=== PATIENT | female | born 1985 | race Caucasian/White ===

== ENCOUNTER 2017-05-01 15:45 | Emergency (ER) | payer MEDICAID ==
[~2017-05-01] VITALS: Ht 162.6 cm; Wt 89.3 kg
[2017-05-01 18:42] VITALS: BP 106/70
== END 2017-05-01 18:40 | disposition home or self-care (01) ==
LOC: ED 15:45
DX: M54.41 Lumbago with sciatica, right side (principal); Z90.49 Acquired absence of other specified parts of digestive tract

== ENCOUNTER 2017-06-06 08:59 | Emergency (ER) | payer MEDICAID ==
[2017-06-06 10:41] VITALS: BP 131/81
== END 2017-06-06 10:41 | disposition home or self-care (01) ==
LOC: ED 08:59
DX: M54.31 Sciatica, right side (principal); R03.0 Elevated blood-pressure reading, without diagnosis of hypertension; Z98.51 Tubal ligation status
CPT/HCPCS: J1885

== ENCOUNTER 2017-06-14 18:36 | Emergency (ER) | payer SELFPAY ==
[~2017-06-14] VITALS: Ht 162.6 cm; Wt 88.5 kg
[2017-06-14 20:30] VITALS: BP 120/80
== END 2017-06-14 20:30 | disposition home or self-care (01) ==
LOC: ED 18:36
DX: M54.41 Lumbago with sciatica, right side (principal); M54.16 Radiculopathy, lumbar region